=== PATIENT | female | born 1955 | race Caucasian/White ===

== ENCOUNTER 2021-07-28 08:10 | Outpatient (CLI) | payer MEDICARE, SELFPAY ==
[2021-07-28 08:54] LABS: Hemoglobin 12.4 g/dL (12.0-15.0); Mean Corpuscular HGB Conc 32.6 g/dl (32-36); Mean Corpuscular Hemoglobin 29.9 pg (26-34); Mean Corpuscular Volume 91.6 fl (80-100); Mean Platelet Volume 10.4 fl (7.4-10.4); Platelet Count Result 319 k/mm3 (150-375); Red Blood Count 4.15 M/mm3 (4.2-5.4); Red Cell Distribution Width 13.2 % (11.5-14.5); White Blood Count 7.4 K/mm3 (4.5-10.0)
[2021-07-28 09:10] LABS: Alanine Aminotransferase 17 U/L (4-35); Albumin Level 4.5 g/dL (3.5-5.1); Alkaline Phosphatase 93 U/L (38-126); Anion Gap 9 mmol/L (8-16); Aspartate Amino Transferase 21 U/L (14-36); Bilirubin,Total 0.4 mg/dL (0.2-1.3); Blood Urea Nitrogen 18 mg/dL (7-17); Calcium 9.5 mg/dL (8.4-10.2); Carbon Dioxide 30 mmol/L (22-30); Chloride 105 mmol/L (98-107); Cholesterol 224 mg/dL (0-200); Estimated Glomerular Filt Rate > 60; Glucose 96 mg/dL (65-110); HDL Direct 48 mg/dL; Potassium 4.4 mmol/L (3.4-5.0); Sodium 144 mmol/L (137-145); Triglycerides 142 mg/dL (<150)
[2021-07-28 09:21] LABS: LDL Cholesterol Direct 133 mg/dL
[2021-07-28 10:42] LABS: Folic Acid > 20.0 ng/mL (2.76->20)
== END 2021-07-28 08:11 | disposition home or self-care (01) ==
PROVIDERS: PCP Internal Medicine; Visit Provider Internal Medicine
DX: I10 Essential (primary) hypertension (principal)
CPT/HCPCS: 36415; 80053; 80061; 82607; 82746; 84443; 85027

== ENCOUNTER 2021-08-18 01:38 | Day surgery (SDC) | payer MEDICARE, SELFPAY ==
[2021-08-10 13:27] VITALS: BMI 41.9
--- NOTE | 2021-08-18 07:24 | PM.HPGS ---
History of Present Illness History of Present Illness Consent: Risks, benefits, and alternatives have been discussed and questions answered. Patient agrees to proceed with procedure. Chief complaint: GERD, epigastric pain Narrative: Reta Han is a 66 year old female with chronic acid reflux disease who is also having epigastric pain. a couple times a week she will have a severe, stabbing pain that is generally in the subxiphoid area. It may last for an hour or so. She also then gets burning in her upper abdomen that is more diffuse. She has been taking pantoprazole twice a day for several years. Occasionally she will feel food seemed to get hung up on the way down if it is solid food.She was found to have severe esophagitis 6 years ago at which time she had a Schatzki's ring as well Review of Systems Review of Systems: All systems reviewed & are unremarkable except as noted in HPI and below PMFSH Family History Family History Mother Patient's mother is Sibling Patient's brother is Social History Social History Smoking packs per day: 1 Smoking cigarettes per day: 20.0 Years smoked: 3 Smoking pack-years: 3.00 Smoking status: Former smoker Tobacco type: cigarettes Second hand tobacco smoke exposure: No Smoking end date: 10/29/73 Alcohol intake: current Alcohol use details: 1 per month Living arrangements: with family Spiritual care concerns: No Meds Home Medications and Allergies Home Medications Medication Instructions Recorded Confirmed Type pantoprazole 40 mg tablet,delayed 40 mg PO BID #180 tablet 06/20/21 08/10/21 Rx release Allergies Allergy/AdvReac Type Severity Reaction Status Date / Time No Known Allergies Allergy Mild NONE Verified 08/18/21 07:41 Exam Const: General: alert Orientation/consciousness: patient oriented x3 Resp: Auscultation: clear to auscultation bilaterally Cardio: Rhythm: regular rhythm GI: GI Palp: Yes Soft to palpation and No Tenderness to palpation present (GI) Neuro: General: patient oriented x3 Assessment and Plan Assessment and plan (1) Esophageal reflux disease: Code(s): K21.9 - Gastro-esophageal reflux disease without esophagitis Status: Acute Assessment and Plan: EGD with possible biopsy or dilatation or cautery.
[2021-08-18 07:42] VITALS: BP 130/69; PULSE 69; RESP 17; TEMP 36.8; O2SAT 94; BMI 41.8
[2021-08-18] MEDS: LACTATED RINGERS 1,000 ML 150 ML IV CONT (07:44)
--- NOTE | 2021-08-18 08:00 | WPDANESEPPF ---
Anes - Initial Pre Proc Eval Procedure: Operation Date: 08/18/21 08:30 Proposed Procedures p Esophagogastroduodenoscopy - Kristian Stevenson MD Date/Time: 08/18/21 08:00 Surgeon: Kristian Stevenson MD Pre Op Diagnosis: GERD, epigastric pain Patient Data Age: 66 Gender: F Height: 1.57 m Weight: 103.9 kg Last Vital Signs Temp 36.8 C 08/18/21 07:42 Pulse 69 08/18/21 07:42 Resp 17 08/18/21 07:42 BP 130/69 08/18/21 07:42 Pulse Ox 94 08/18/21 07:42 Allergies Allergy/AdvReac Type Severity Reaction Status Date / Time No Known Allergies Allergy Mild NONE Verified 08/18/21 07:41 Home Medications Medication Instructions Recorded Confirmed Type pantoprazole 40 mg tablet,delayed 40 mg PO BID #180 tablet 06/20/21 08/18/21 Rx release Patient hx anesthesia problems: none Family hx anesthesia problems: none Results Review: All pre-operative results and documents have been reviewed as part of the pre-operative evaluation. FOR[facility]LY [facility], [facility] Past Medical History Medical History (Updated 08/18/21 @ 08:00 by Kiran Ha MD) Morbid obesity Snoring Surgical History Surgical History (Updated 08/18/21 @ 08:01 by Kiran Ha MD) History of esophagogastroduodenoscopy (EGD) Family History Family History Mother Patient's mother is Sibling Patient's brother is Social History Social History Smoking packs per day: 1 Smoking cigarettes per day: 20.0 Years smoked: 3 Smoking pack-years: 3.00 Smoking status: Former smoker Tobacco type: cigarettes Second hand tobacco smoke exposure: No Smoking end date: 10/29/73 Alcohol intake: current Alcohol use details: 1 per month Living arrangements: with family Spiritual care concerns: No Anes - Eval Final PreProcedure Day of Procedure 08/18/21 08:00 Patient weight: morbidly obese Heart: regular rate and rhythm Lungs: clear to auscultation Airway: Mallampati scale class II Neurological: alert and oriented Last oral intake: >/= 8 hours ASA classification: III Emergent: no Anesthetic plan: proceed Anesthesia type and monitoring: general GIVS and standard monitoring Results Review: All pre-operative results and documents have been reviewed as part of the pre-operative evaluation. Informed Consent: The patient's anesthetic plan and its attendant risks and benefits were discussed with the patient/family/POA. Questions were solicited and answers provided to the satisfaction of the patient/family/POA.
[2021-08-18 08:31] VITALS: BP 134/67; PULSE 60; RESP 17; O2SAT 98
[2021-08-18 08:41] VITALS: BP 130/73; PULSE 56; RESP 18; O2SAT 99
[2021-08-18 08:51] VITALS: BP 123/74; PULSE 55; RESP 18; O2SAT 99
== END 2021-08-18 09:02 | disposition home or self-care (01) ==
PROVIDERS: PCP Internal Medicine; Visit Provider Internal Medicine Gastroenterology
PROC: 0DJ08ZZ Inspection of Upper Intestinal Tract, Via Natural or Artificial Opening Endoscopic (ICD-10-PCS; CPT 43235; principal; 2021-08-18 08:30)
DX: K21.9 Gastro-esophageal reflux disease without esophagitis (principal); K44.9 Diaphragmatic hernia without obstruction or gangrene; Z87.891 Personal history of nicotine dependence; E66.01 Morbid (severe) obesity due to excess calories; Z68.41 Body mass index [BMI] 40.0-44.9, adult
CPT/HCPCS: 43235; J2704; J7120

== ENCOUNTER 2021-09-16 07:32 | Outpatient (CLI) | payer MEDICARE, SELFPAY ==
--- NOTE | ~2021-09-16 | US_ITS ---
EXAMINATION: US abdomen complete EXAM DATE: 09/16/2021 08:07 INDICATION: R10.13 - Epigastric pain. TECHNIQUE: Multiple grayscale and Doppler images of the complete abdomen were obtained (by a technolo gist who performed the scan) and subsequently reviewed. There is no prior study for comparison. FINDINGS: The abdominal aorta is normal in caliber. Visualized portion IVC is patent. The pancreatic head a nd body are normal in appearance. The pancreatic tail is not visualized. The liver has normal echogenicity and contour. There are no focal liver lesions identified. There is no evidence of intrahepatic biliary duct dilation. Portal venous flow was seen in the hepatopedal , normal direction and has normal Doppler waveform. Common bile duct measures 4 mm, which is normal. The gallbladder wall is normal in thickness, with ex pected amount of distention. No sonographic evidence of pericholecystic fluid. There is no cholelit hiases. Technologist performing exam reports patient did not demonstrate sonographic Banks's sign. Please note that this sign is less reliable in patients who have received pain medication. Right kidney: There is normal contour and echogenicity. It measures 10.4 x 4.2 x 5.9 centimeters. There are no focal renal lesions identified. There is no hydronephrosis. Left kidney: There is normal contour and echogenicity. It measures 10.3 x 4.3 x 5.0 centimeters. T here are no focal renal lesions identified. There is no hydronephrosis. Spleen measures 10.3 cm, normal in size with scattered granulomata. IMPRESSION: 1. Unremarkable complete abdominal ultrasound exam. Reviewed, dictated and finalized at location D. [employer]
== END 2021-09-16 07:33 | disposition home or self-care (01) ==
PROVIDERS: PCP Internal Medicine; Visit Provider Internal Medicine Gastroenterology
DX: R10.13 Epigastric pain (principal)
CPT/HCPCS: 76700

== ENCOUNTER 2021-12-30 09:56 | Outpatient (CLI) | payer MEDICARE, SELFPAY ==
--- NOTE | ~2021-12-30 | CT_ITS ---
EXAMINATION: CT brain wo/w con DATE: 12/30/2021 10:26 INDICATION: Dizziness, giddiness TECHNIQUE: Computed tomography (CT) of the head was performed without intravenous contrast. The mA wa s adjusted according to patient size. Iterative reconstruction technique was employed. Exam dose: 10 59.33 mGy-cm total exam DLP. COMPARISON: None FINDINGS: Bilateral vertebral artery and carotid siphon internal carotid artery calcifications. No intracranial mass lesion or hemorrhage or cerebrovascular accident, midline shift or mass effect. Normal ventricular size. No subdural or epidural hematoma. No orbital mass lesion. No fracture or bone destruction of the cranial vault. Minimal focal lateral right sphenoid nuchal periosteal soft tissue thickening. Included paranasal sin uses and mastoid air cells are otherwise unremarkable. IMPRESSION: Cerebral atherosclerosis; no acute intracranial finding Reviewed, dictated and finalized at Location A. Reviewed, dictated and finalized at location A. [facility]
[2021-12-30 10:21] LABS: Estimated Glomerular Filt Rate > 60
== END 2021-12-30 09:57 | disposition home or self-care (01) ==
PROVIDERS: PCP Internal Medicine; Visit Provider Internal Medicine
DX: R42 Dizziness and giddiness (principal); I67.2 Cerebral atherosclerosis
CPT/HCPCS: 70470; Q9967

== ENCOUNTER 2022-02-16 08:44 | Outpatient (CLI) | payer MEDICARE, SELFPAY ==
--- NOTE | ~2022-02-16 | MR_ITS ---
EXAMINATION: MR brain/brain stem wo con DATE: 02/16/2022 09:49 INDICATION: Tremor, unspecified. TECHNIQUE: Magnetic resonance imaging (MRI) of the brain and brainstem was performed without intraven ous contrast. COMPARISON: Head CT 12/30/2021 FINDINGS: There are 2 foci of nonspecific increased T2-weighted signal intensity in the cerebral whit e matter, which is within normal limits for the patient's age. There is no intracranial hemorrhage, a cute infarction, or abnormal intracranial mass lesion. The ventricles are normal in size. The paranas al sinuses are clear. The orbits are normal. The mastoid air cells are normal. IMPRESSION: 1. Normal brain. Reviewed, dictated and finalized at location B. IMPRESSION: 1. Normal brain.
== END 2022-02-16 08:45 | disposition home or self-care (01) ==
PROVIDERS: PCP Internal Medicine; Visit Provider Psychiatry & Neurology Neurology
DX: R25.1 Tremor, unspecified (principal)
CPT/HCPCS: 70551

== ENCOUNTER 2022-04-24 07:58 | Outpatient (CLI) | payer MEDICARE, SELFPAY ==
[2022-04-24 08:36] LABS: Basophils Absolute Auto 0.1 K/mm3 (0.0-0.1); Basophils Percent Auto 1.1 % (0.2-1.2); Eosinophils Absolute Auto 0.2 K/mm3 (0-0.3); Eosinophils Percent Auto 3.2 % (0-4.4); Hematocrit 38.9 % (37.0-47.0); Hemoglobin 12.4 g/dL (12.0-15.0); Immature Granulocyte Absolute 0.01 K/mm3 (0.00-0.031); Immature Granulocyte Percent A 0.2 % (0-0.5); Lymphocytes Absolute Auto 2.02 K/mm3 (0.9-3.2); Lymphocytes Percent Auto 32.7 % (18.3-44.2); Mean Corpuscular HGB Conc 31.9 g/dl (32-36); Mean Corpuscular Hemoglobin 29.5 pg (26-34); Mean Corpuscular Volume 92.4 fl (80-100); Monocytes Absolute Auto 0.5 K/mm3 (0.1-0.6); Monocytes Percent Auto 8.7 % (2.6-8.5); Neutrophils Absolute Auto 3.3 K/mm3 (1.3-6.7); Neutrophils Percent Auto 54.1 % (45.5-73.1); Platelet Count Result 339 k/mm3 (150-375); Red Blood Count 4.21 M/mm3 (4.2-5.4); Red Cell Distribution Width 12.6 % (11.5-14.5); White Blood Count 6.2 K/mm3 (4.5-10.0)
[2022-04-24 08:49] LABS: Alanine Aminotransferase 16 U/L (6-35); Albumin Level 4.2 g/dL (3.5-5.1); Alkaline Phosphatase 82 U/L (38-126); Anion Gap 4 mmol/L (8-16); Aspartate Amino Transferase 19 U/L (14-36); Bilirubin,Total 0.2 mg/dL (0.2-1.3); Blood Urea Nitrogen 19 mg/dL (7-17); Calcium 9.1 mg/dL (8.4-10.2); Carbon Dioxide 31 mmol/L (22-30); Chloride 104 mmol/L (98-107); Cholesterol 260 mg/dL (0-200); Estimated Glomerular Filt Rate > 60; Glucose 93 mg/dL (65-110); HDL Direct 52 mg/dL; Potassium 4.3 mmol/L (3.4-5.0); Sodium 139 mmol/L (137-145); Triglycerides 117 mg/dL (<150)
[2022-04-24 09:00] LABS: LDL Cholesterol Direct 143 mg/dL
[2022-04-24 10:07] LABS: Folic Acid > 20.0 ng/mL (2.76->20)
== END 2022-04-24 07:59 | disposition home or self-care (01) ==
PROVIDERS: PCP Internal Medicine; Visit Provider Internal Medicine
DX: R53.83 Other fatigue (principal); R42 Dizziness and giddiness
CPT/HCPCS: 36415; 80053; 80061; 82533; 82607; 82746; 84443; 85025

== ENCOUNTER 2022-04-25 12:43 | Outpatient (CLI) | payer MEDICARE, SELFPAY ==
--- NOTE | ~2022-04-25 | US_ITS ---
EXAMINATION: US carotid duplex BI DATE: 04/25/2022 14:44 INDICATION: Dizziness and giddiness TECHNIQUE: Grayscale, color Doppler, and pulsed Doppler images of the cervical carotid arteries were obtained. The degree of vessel stenosis is placed in one of the following categories: normal, <50%, 5 0-69%, >=70% but less than near-occlusion, near-occlusion, or total occlusion. Note that percent sten osis relative to normal distal artery lumen diameter is indirectly measured from velocity measurement s as described by Baljeet, et al. Radiology 2003; 229:340-346. Notes: Normal: Peak systolic velocity <125 centimeters/sec and no plaque <50%. Peak systolic velocity <125 ( EDV <40; ICA/CCA PSV ratio <2.0; used these factors only a tandem lesions or low cardiac output or co ntralateral disease) 50-69 %: PSV 125-230 (EDV 40-100; ratio 2-4) >= 70% but less than near occlusion: PSV greater than 230 (EDV > 100; ratio> 4.0) Near Occlusion: PSV that is variable; markedly narrowed lumen Occlusion: Absent flow on color/spectral Doppler and no lumen on goode scale. COMPARISON: None. FINDINGS: RIGHT: The right common carotid artery (CCA) peak systolic velocity (PSV) is 86 cm/s. The right internal car otid artery (ICA) PSV is 92 cm/s. The right ICA end-diastolic velocity (EDV) is 36 cm/s. The right IC A/CCA PSV ratio is 1.1. The external carotid artery (ECA) PSV is 82 cm/s. There is antegrade flow in the right vertebral artery. LEFT: The left CCA PSV is 87 cm/s. The left ICA PSV is 92 cm/s. The left ICA EDV is 34 cm/s. The left ICA/C CA PSV ratio is 1.1. The ECA PSV is 89 cm/s. There is antegrade flow in the left vertebral artery. IMPRESSION: 1. Less than 50% stenosis in the right internal carotid artery by sonographic criteria. 2. Less than 50% stenosis in the left internal carotid artery by sonographic criteria. Reviewed, dictated and finalized at location A. IMPRESSION: 1. Less than 50% stenosis in the right internal carotid artery by sonographic c gustavo. 2. Less than 50% stenosis in the left internal carotid artery by sonographic deepika darling.
--- NOTE | 2022-04-25 12:55 | ECHO_ITS ---
Patient Info Name: Reta Han Age: 67 years : 1955 Gender: Female Ht: 62 in Wt: 220 lbs BSA: 2.14 m2 HR: 63 bpm BP: 132 / 53 mmHg Technical Quality: Good Exam Date: 04/25/2022 1:15 PM Exam Location: [facility] Patient Status: Outpatient Admit Date: 04/25/2022 Staff Ordering Physician: Elias Mandujano DO Composition Tile Layer: Missy Mejia RDCS Attending Provider: Elias Mandujano DO Referring Physician: Delbert MORAES; Exam Type: CA echo doppler color flow Study Info Indications R42 - Dizziness and giddiness Complete two-dimensional, color flow and Doppler transthoracic echocardiogram is performed. Summary 1. Complete two-dimensional, color flow and Doppler transthoracic echocardiogram is performed. 2. Left ventricular systolic function is normal, estimated at 55-60%. 3. The left ventricular diastolic function is grade I diastolic dysfunction. 4. Left ventricular chamber dimension is normal. 5. E/e' 12 is mildly elevated. 6. Left atrial chamber dimension is mildly enlarged. 7. There is mild aortic valve sclerosis. 8. There is trace mitral valve regurgitation. 9. There is trace tricuspid valve regurgitation. 10. No pulmonary hypertension, estimated pulmonary arterial systolic pressure is 25 mmHg. 11. There is trivial pericardial effusion. Left Ventricle E/e' 12 is mildly elevated. Left ventricular chamber dimension is normal. Left ventricular systolic function is normal, estimated at 55-60%. The left ventricular diastolic function is grade I diastolic dysfunction. Right Ventricle Right ventricular systolic function is normal and with normal TAPSE 1.9 cm. Right ventricular chamber dimension is normal. Left Atria Left atrial chamber dimension is mildly enlarged. Right Atria Right atrial chamber dimension is normal. Aortic Valve The aortic valve is trileaflet. There is mild aortic valve sclerosis. There is no aortic valve stenosis. There is no aortic valve regurgitation. Pulmonic Valve There is no pulmonic regurgitation. Mitral Valve There is no mitral valve stenosis. There is trace mitral valve regurgitation. Tricuspid Valve There is trace tricuspid valve regurgitation. No pulmonary hypertension, estimated pulmonary arterial systolic pressure is 25 mmHg. Pericardium/Pleural There is trivial pericardial effusion. Inferior Vena Cava Normal inferior vena cava with >50% collapse upon inspiration consistent with normal right atrial pressure, 5 mmHg. Aorta The aortic root size at the sinus of Valsalva is normal. Left Ventricular Outflow Tract Name Value Normal LVOT 2D LVOT Diameter 2.0 cm LVOT Doppler LVOT Peak Gradient 5 mmHg LVOT Mean Gradient 2 mmHg LVOT VTI 21 cm LVOT VTI/AV VTI Ratio 0.6 LVOT Stroke Volume 67 ml LVOT CO 4.3 l/min LVOT CI 2.0 l/min/m2 Mitral Valve
--- NOTE | 2022-04-28 12:34 | WPDHOLTEREM ---
Holter/Event Monitor Holter/Event Monitor Date of procedure: 04/25/22 Holter/Event Procedure: 48 Hr Holter Monitor Indications: Dizziness Conclusion: 1. 48 hour holter monitor on 04/25/22. 2. Underlying rhythm is sinus rhythm. HR range 44-98 bpm; average HR 68 bpm. 3. There are 42 premature supraventricular complexes. No supraventricular tachycardia. 4. There are 2 premature ventricular complexes. No ventricular tachycardia. 5. No sinoatrial or atrioventricular blocks. No significant pauses greater than 2 seconds. 6. Patient reports symptoms of lightheadedness which demonstrate sinus rhythm, HR range 54-86 bpm.
== END 2022-04-25 12:44 | disposition home or self-care (01) ==
LOC: ANHCARD 12:44
PROVIDERS: PCP Internal Medicine; Visit Provider Internal Medicine
DX: R42 Dizziness and giddiness (principal); I65.23 Occlusion and stenosis of bilateral carotid arteries; I51.7 Cardiomegaly
CPT/HCPCS: 93225; 93226; 93306; 93880

== ENCOUNTER 2022-05-18 08:27 | Outpatient (CLI) | payer MEDICARE, SELFPAY ==
--- NOTE | 2022-06-06 23:00 | WPDSLEEPSTUD ---
Sleep Study Date of Study: 05/18/22 Ordering Provider: Elias Mandujano DO Interpreting Physician: Chandrika Maguire DO Sleep Study Type: Polysomnogram Height: 1.57 m Weight: 100.244 kg Body Mass Index: 40.4 Neck Circumference (inches): 15 Celina: 4 Reason for Sleep Study Hitting,kicking and screaming during sleep Sleep History The patient is a 67-year-old female with GERD, Parkinson's disease, constipation and history of tobacco use that had a sleep study ordered by her primary care physician for evaluation abnormal behavior during sleep. The patient is currently retired. She denies awakening from sleep short of breath. She frequently awakens at night with coughing. She occasionally snores but it is rarely loud enough others complain. She frequently has trouble sleeping when she has a cold. She denies waking up gasping for air throughout the night. She denies having breathing problems at night observed by herself or others. She denies sweating excessively at night. She denies having heart palpitations or irregular heartbeats during the night. She denies falling asleep during the day and while driving. He denies sleep paralysis, cataplexy and hypnagogic / hypnopompic hallucinations. She denies having trouble at school or work due to sleepiness. She denies feeling afraid of going to sleep. She occasionally has nightmares. She rarely remembers her dreams. She denies having thoughts racing through her mind. She denies feeling sad or depressed. She denies having anxiety. She denies having muscular tension. She denies noticing parts of her body jerk. She denies kicking during the night. She denies having crawling and aching feelings in her legs but will occasionally have leg pain during the night. She denies grinding her teeth during sleep awakening with morning jaw pain. She is frequently bothered by pain during the day but never awakened by pain during the night. She frequently wakes up feeling stiff in the morning. She denies waking up with sore and achy muscles. She occasionally wakes up with pain in the neck, spine and other joints. She goes to bed at 10:30 p.m. on both weekdays and weekends. It takes her less than 30 minutes to fall asleep. She wakes up twice throughout the night to urinate. She is able to fall back asleep within 10 minutes. She wakes between 7-8 a.m. on both weekdays and weekends. She typically gets 8 hours of sleep per night. She will stay in bed for 10 minutes after waking up in the morning. He currently lives with her and adult son. She does not consume any caffeinated beverages within 2 hours of bedtime. She does not engage in physical exercise before bedtime. She will watch television before falling asleep. She denies taking naps in the afternoon or the evening. She quit smoking cigarettes 40 years ago. She denies caffeine, alcohol and recreational drug use PMFSH Past Medical History Medical History Morbid obesity Snoring Surgical History Surgical History History of esophagogastroduodenoscopy (EGD) Family History Family History Mother Patient's mother is Cancer Diabetes mellitus Hypertension Sibling Patient's brother is Cancer Daughter Asthma Grandparent Asthma Cerebrovascular accident Social History Social History Smoking packs per day: 1 Smoking cigarettes per day: 20.0 Years smoked: 3 Smoking pack-years: 3.00 Smoking status: Never smoker Tobacco type: cigarettes Second hand tobacco smoke exposure: No Smoking end date: 10/29/73 Alcohol intake: current Alcohol use details: 1 per month Substance use: never Spiritual care concerns: No Medications Home
[2022-06-07 04:57] VITALS: BMI 40.4
== END 2022-05-19 07:57 | disposition home or self-care (01) ==
LOC: ANHCSM 08:29
PROVIDERS: PCP Internal Medicine; Visit Provider Internal Medicine
DX: G47.8 Other sleep disorders (principal); G47.10 Hypersomnia, unspecified; R53.83 Other fatigue
CPT/HCPCS: 95810

== ENCOUNTER 2022-10-16 09:32 | Outpatient (CLI) | payer MEDICARE, SELFPAY ==
[2022-10-16 10:25] LABS: Alanine Aminotransferase 18 U/L (6-35); Albumin Level 4.6 g/dL (3.5-5.1); Alkaline Phosphatase 81 U/L (38-126); Anion Gap 6 mmol/L (8-16); Aspartate Amino Transferase 22 U/L (14-36); Bilirubin,Total 0.5 mg/dL (0.2-1.3); Blood Urea Nitrogen 21 mg/dL (7-17); Carbon Dioxide 31 mmol/L (22-30); Chloride 104 mmol/L (98-107); Cholesterol 167 mg/dL (0-200); Estimated Glomerular Filt Rate > 60; Glucose 93 mg/dL (65-110); HDL Direct 59 mg/dL; Potassium 4.2 mmol/L (3.4-5.0); Sodium 141 mmol/L (137-145); Triglycerides 113 mg/dL (<150)
[2022-10-16 10:36] LABS: LDL Cholesterol Direct 72 mg/dL
== END 2022-10-16 09:33 | disposition home or self-care (01) ==
PROVIDERS: PCP Internal Medicine; Visit Provider Internal Medicine
DX: E78.5 Hyperlipidemia, unspecified (principal); E66.01 Morbid (severe) obesity due to excess calories; Z68.41 Body mass index [BMI] 40.0-44.9, adult
CPT/HCPCS: 36415; 80053; 80061

== ENCOUNTER 2023-05-07 11:28 | Outpatient (CLI) | payer MEDICARE, SELFPAY ==
--- NOTE | ~2023-05-07 | XR_ITS ---
EXAMINATION:XR_[id number] DATE: 05/07/2023 11:57 INDICATION: Neck pain TECHNIQUE: AP, lateral, and odontoid views of the cervical spine are provided. COMPARISON: None FINDINGS: There is reversal of the normal cervical lordosis. Bone alignment is normal. The odontoid p rocess is intact. No fracture is identified. There is severe loss of intervertebral disc space height at C4-5, C5-6, and C6-7. The vertebral body heights are maintained. Small degenerative osteophytes p roject from the anterior endplates of multiple vertebral bodies. There is multilevel moderate to akosua re facet joint osteoarthritis. Prevertebral soft tissues are normal. IMPRESSION: 1. Moderate to severe cervical spondylosis without acute findings. Reviewed, dictated and finalized at location B.
--- NOTE | ~2023-05-07 | XR_ITS ---
Lumbosacral Spine: AP and lateral views Clinical History: Pain Findings: The normal lordotic curve is maintained. 3 mm retrolisthesis of L3 over L4 present. There i s mild degenerative disc narrowing throughout the lumbar spine. There is mild to moderate facet arthr opathy in the lumbar spine. The sacroiliac joints are normally outlined. Impression: Mild to moderate degenerative spondylosis. 3 mm retrolisthesis of L3 over L4. Reviewed, dictated and finalized at location . Impression: Mild to moderate degenerative spondylosis. 3 mm retrolisthesis of L3 over L4.
== END 2023-05-07 11:29 | disposition home or self-care (01) ==
PROVIDERS: PCP Internal Medicine; Visit Provider Internal Medicine
DX: M47.892 Other spondylosis, cervical region (principal); M47.896 Other spondylosis, lumbar region
CPT/HCPCS: 72040; 72100

== ENCOUNTER 2023-06-21 09:06 | Outpatient (CLI) | payer MEDICARE, SELFPAY ==
[2023-06-21 09:25] LABS: Basophils Absolute Auto 0.1 K/mm3 (0.0-0.1); Basophils Percent Auto 0.9 % (0.2-1.2); Eosinophils Absolute Auto 0.2 K/mm3 (0-0.3); Eosinophils Percent Auto 3.1 % (0-4.4); Hematocrit 38.6 % (37.0-47.0); Hemoglobin 12.8 g/dL (12.0-15.0); Immature Granulocyte Absolute 0.02 K/mm3 (0.00-0.031); Immature Granulocyte Percent A 0.3 % (0-0.5); Lymphocytes Absolute Auto 1.69 K/mm3 (0.9-3.2); Lymphocytes Percent Auto 24.9 % (18.3-44.2); Mean Corpuscular HGB Conc 33.2 g/dl (32-36); Mean Corpuscular Hemoglobin 29.9 pg (26-34); Mean Corpuscular Volume 90.2 fl (80-100); Mean Platelet Volume 9.8 fl (7.4-10.4); Monocytes Absolute Auto 0.6 K/mm3 (0.1-0.6); Monocytes Percent Auto 8.3 % (2.6-8.5); Neutrophils Absolute Auto 4.2 K/mm3 (1.3-6.7); Neutrophils Percent Auto 62.5 % (45.5-73.1); Platelet Count Result 285 k/mm3 (150-375); Red Blood Count 4.28 M/mm3 (4.2-5.4); Red Cell Distribution Width 12.4 % (11.5-14.5); White Blood Count 6.8 K/mm3 (4.5-10.0)
[2023-06-21 09:36] LABS: Alanine Aminotransferase 13 U/L (6-35); Albumin Level 4.1 g/dL (3.5-5.1); Alkaline Phosphatase 94 U/L (38-126); Anion Gap 3 mmol/L (8-16); Aspartate Amino Transferase 20 U/L (14-36); Bilirubin,Total 0.5 mg/dL (0.2-1.3); Blood Urea Nitrogen 24 mg/dL (7-17); Calcium 8.8 mg/dL (8.4-10.2); Carbon Dioxide 33 mmol/L (22-30); Chloride 104 mmol/L (98-107); Cholesterol 151 mg/dL (0-200); Estimated Glomerular Filt Rate > 60; Glucose 92 mg/dL (65-110); HDL Direct 57 mg/dL; Potassium 4.3 mmol/L (3.4-5.0); Sodium 140 mmol/L (137-145); Triglycerides 65 mg/dL (<150)
[2023-06-21 09:48] LABS: LDL Cholesterol Direct 76 mg/dL
[2023-06-21 10:42] LABS: Folic Acid 11.6 ng/mL (2.76->20)
== END 2023-06-21 09:07 | disposition home or self-care (01) ==
LOC: ANHLAB 09:08
PROVIDERS: PCP Internal Medicine; Visit Provider Internal Medicine
DX: G47.10 Hypersomnia, unspecified (principal); E78.5 Hyperlipidemia, unspecified; R53.83 Other fatigue; E66.01 Morbid (severe) obesity due to excess calories; Z68.41 Body mass index [BMI] 40.0-44.9, adult
CPT/HCPCS: 36415; 80053; 80061; 82607; 82746; 84443; 85025

== ENCOUNTER 2024-08-08 08:25 | Outpatient (CLI) | payer MEDICARE, SELFPAY ==
[2024-08-08 08:53] LABS: Basophils Absolute Auto 0.1 K/mm3 (0.0-0.1); Eosinophils Absolute Auto 0.3 K/mm3 (0-0.3); Eosinophils Percent Auto 4.9 % (0-4.4); Hematocrit 39.7 % (37.0-47.0); Immature Granulocyte Absolute 0.02 K/mm3 (0.00-0.031); Immature Granulocyte Percent A 0.3 % (0-0.5); Lymphocytes Absolute Auto 1.81 K/mm3 (0.9-3.2); Lymphocytes Percent Auto 29.5 % (18.3-44.2); Mean Corpuscular HGB Conc 32.7 g/dl (32-36); Mean Corpuscular Volume 91.5 fl (80-100); Mean Platelet Volume 9.7 fl (7.4-10.4); Monocytes Absolute Auto 0.5 K/mm3 (0.1-0.6); Monocytes Percent Auto 7.8 % (2.6-8.5); Neutrophils Absolute Auto 3.5 K/mm3 (1.3-6.7); Neutrophils Percent Auto 56.5 % (45.5-73.1); Platelet Count Result 290 k/mm3 (150-375); Red Blood Count 4.34 M/mm3 (4.2-5.4); Red Cell Distribution Width 13.1 % (11.5-14.5); White Blood Count 6.1 K/mm3 (4.5-10.0)
[2024-08-08 10:21] LABS: Alanine Aminotransferase 13 U/L (6-35); Albumin Level 4.1 g/dL (3.5-5.1); Alkaline Phosphatase 100 U/L (38-126); Anion Gap 7 mmol/L (4-12); Aspartate Amino Transferase 24 U/L (14-36); Bilirubin,Total 0.6 mg/dL (0.2-1.3); Blood Urea Nitrogen 16 mg/dL (7-17); Calcium 8.7 mg/dL (8.4-10.2); Carbon Dioxide 33 mmol/L (22-30); Chloride 103 mmol/L (98-107); Cholesterol 160 mg/dL (0-200); Estimated Glomerular Filt Rate > 60; Glucose 94 mg/dL (65-110); HDL Direct 57 mg/dL; Sodium 143 mmol/L (137-145); Triglycerides 56 mg/dL (<150)
[2024-08-08 10:32] LABS: LDL Cholesterol Direct 75 mg/dL
== END 2024-08-08 08:26 | disposition home or self-care (01) ==
PROVIDERS: PCP Internal Medicine; Visit Provider Internal Medicine
DX: G47.10 Hypersomnia, unspecified (principal); E78.5 Hyperlipidemia, unspecified; E66.9 Obesity, unspecified
CPT/HCPCS: 36415; 80053; 80061; 84443; 85025

== ENCOUNTER 2025-05-04 07:43 | Outpatient (CLI) | payer MEDICARE, SELFPAY ==
--- NOTE | ~2025-05-04 | NM_ITS ---
EXAMINATION: NM juanito stress w perfusion DATE: 05/04/2025 10:54 INDICATION: Chest pain TECHNIQUE: Rest images were obtained following intravenous administration of 11.2 mCi Tc99m tetrofosm in (Myoview). The patient was infused intravenously with Lexiscan (Regadenoson). Then, 34.9 mCi Tc99m tetrofosmin (Myoview) was administered intravenously, and stress images were obtained. Data was loretta nstructed into short axis and horizontal and vertical long axis SPECT images. Gated SPECT images were also obtained. COMPARISON: None. FINDINGS: There is no definite reversible or fixed perfusion abnormality to suggest ischemia or infar ction. There is normal left ventricular chamber size, wall motion and ejection fraction. Left ventr icular ejection fraction measures 68%. IMPRESSION: 1. Normal myocardial perfusion at rest and during stress. 2. Left ventricular ejection fraction measuring 68%. Reviewed, dictated and finalized at location A.
--- OUTSIDE RECORDS SUMMARY | 2025-05-04 07:48 | XMS_ITS | Clinical Summary ---
Author Organization [facility] Address [address] [place] [address] Care Team Providers Care Medical Assistant Internal Medicine Name Role Phone Elias Mandujano Mary MORGAN Primary Care Provider Source Comments [facility],non-owned Affiliates and Associated Physician Practices is amultiple site organization consisting of ambulatory clinics and hospital sitesin [place], [place], [place] and [place]. This disclosure is being madepursuant to the Care Everywhere program and may not contain all information available regarding this patient. Last updated 18.[facility] Allergies No known active allergies Medications * Be aware that medications may not be up to date on this document. Alwaysverify current medications with the patient. pantoprazole EC (PROTONIX) 40 MG tablet 12/30/2018 Active tolmetin (TOLECTIN) 600 MG tabletIndicatio ns:Osteoarthrit is,feet pain Take 1 tablet by mouth 3 times daily with meals Reasons: Joint Damage causing Pain and Loss of Function, feet pain 90 tablet 2 04/28/2019 Active Social History Tobacco Use Types Packs/Day Years Used Date Smoking Tobacco: Never Smokeless Tobacco: Never Comments Unknown Sex and Gender Information Value Date Recorded Sex Assigned at Not on file Legal Sex Female 3:46 PM CDT Gender Identity Not on file Sexual Orientation Not on file Last Filed Vital Signs Vital Sign Reading Time Taken Comments Blood Pressure 130/80 03/17/2019 9:09 AM CDT Pulse 62 03/17/2019 9:09 AM CDT Temperature 36.4 C (97.6 F) 03/17/2019 9:09 AM CDT Respiratory Rate - - Oxygen Saturation - - Inhaled Oxygen Concentration - - Weight 101.6 kg (224 lb) 03/17/2019 9:09 AM CDT Height 160 cm (5' 3) 03/17/2019 9:09 AM CDT Body Mass Index 39.68 03/17/2019 9:09 AM CDT Plan of Treatment Health Maintenance Due Date Last Done Comments BONE DENSITY TESTING 1955 COLOGUARD (AGES 45-75) - COL ON CA SCREENING 1955 COLON MONITORING 1955 COLONOSCOPY - COLON CA SCREENING 1955 CT COLONOGRAPHY - COLON CA SCREENING 1955 Colorectal Cancer Screening 1955 FIT - COLON CA SCREENING 1955 FLEX SIG - COLON CA SCREENING 1955 LIPID TESTING 1955 HEPATITIS C SCREENING 03/25/1974 DTAP/TDAP/TD VACCINES (1 - Tdap) 1975 PNEUMOCOCCAL VACCINE 50+ (1 of 1 - PCV) 2006 ZOSTER VACCINE (1 of 2) 2006 SCREENING FOR DIABETES 03/17/2019 MAMMOGRAM 08/28/2020 08/28/2018 COVID-19 VACCINE (1 - 2023-2 5 season) 2024 DEPRESSION SCREENING 10/29/2024 INFLUENZA VACCINE (#1) 2025 Respiratory Syncytial Virus (RSV) Vaccine Pt: or over 60 yrs (1 - 1-dose 75+ series) 2031 HEPATITIS B VACCINE Aged Out No longe r eligible based on patient's age to complete this topic HIB VACCINE Aged Out No longer eligi ble based on patient's age to complete this topic HPV VACCINE Aged Out No longer eligi ble based on patient's age to complete this topic MENINGOCOCCAL (Group B) VACC INE SHARED DECISION-MAKING Aged Out No longer eligibl e based on patient's age to complete this topic MENINGOCOCCAL GROUPS A/C/Y/W VACCINE Aged Out No longer eligible b ased on patient's age to complete this topic Insurance [employer] Care Teams Medical Assistant Internal Medicine Relationship Specialty Start Date End Date Elias Mandujano DO [address] [address] [place] [address] PCP - General 08/01/18
--- OUTSIDE RECORDS SUMMARY | 2025-05-04 07:48 | XMS_ITS | Clinical Summary ---
Author Organization [facility] Address [address] [place] [address] Care Team Providers Care Plugger Name Role Phone Zack Rosado DO Primary Care Provider [phone] Medications atorvastatin (LIPITOR) 20 MG tablet Take 1 tablet (20 mg total) by mouth daily. Active pantoprazole EC (PROTONIX) 40 MG tablet Take 1 tablet (40 mg total) by mouth 2 (two) times daily. 4 Active melatonin (MELATONIN MAXIMUM STRENGTH) 5 MG tablet Take 2 tablets (10 mg total) by mouth daily. Active traZODone (DESYREL) 50 MG tablet Take 1 tablet (50 mg total) by mouth nightly at bedtime. 4 Active carbidopa-levodopa (SINEMET) 25-100 MG tabletIndications:P arkinson's disease without dyskinesia or fluctuating manifestations (CMS/HCC HHS/HCC) Take 2 tablets by mouth 3 (three) times daily. 180 tablet 4 09/16/20 25 Active fludrocortisone (FLORINEF) 0.1 MG tabletIndications:P arkinson's disease without dyskinesia or fluctuating manifestations (CMS/HCC HHS/HCC) Take 2 tablets (0.2 mg total) by mouth daily. 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 or fluctuating manifestations (CMS/HCC HHS/HCC) TAKE 1 TABLET(0.5 MG) BY MOUTH EVERY NIGHT 30 tablet 5 5 Active Active Problems Problem Noted Date Diagnosed Date Parkinson's disease 09/16/2024 Family History Medical History Relation Comments Breast Cancer Mother Diabetes Mother Parkinson's Disease Mother Polycythemia Mother Relation Status Comments Mother Social History Tobacco Use Types Packs/Day Years Used Date Smoking Tobacco: Never Passive Smoke Exposure: Never Smokeless Tobacco: Never Tobacco Cessation:Counseling Given: Yes Alcohol Use Standard Drinks/Week Comments Never 0 (1 standard drink = 0.6 oz pur e alcohol) PHQ-2 Answer Date Recorded Patient Health Questionnaire-2 Score 0 11/13/2024 Comments Unknown Sex and Gender Information Value Date Recorded Sex Assigned at Not on file Legal Sex Female 9:09 AM CDT Gender Identity Not on file Sexual Orientation Not on file Last Filed Vital Signs Vital Sign Reading Time Taken Comments Blood Pressure 142/82 11/13/2024 1:44 PM LIGHTHOUSE KEEPER Pulse 67 11/13/2024 1:14 PM LIGHTHOUSE KEEPER Temperature 37.1 C (98.8 F) 09/16/2024 1:27 PM LIGHTHOUSE KEEPER Respiratory Rate - - Oxygen Saturation 96% 11/13/2024 1:14 PM LIGHTHOUSE KEEPER Inhaled Oxygen Concentration - - Weight 94.3 kg (208 lb) 11/13/2024 1:14 PM LIGHTHOUSE KEEPER Height - - Body Mass Index - - Plan of Treatment Upcoming Encounters Date Type Department Care Team (Late st Contact Info) Description 05/13/2025 1:00 PM CDT Office Visit [facility] Multispecialty Care - [address], [address] [place] [id number] Argelia Mclean MD [address] [place] [address] Health Maintenance Due Date Last Done Comments Colorectal Cancer Screening Colonoscopy (10 Years) 1955 Hepatitis C 1974 DTaP, Tdap and Td Vaccines (1 - Tdap) 1975 Zoster Vaccines (1 of 2) 2006 Annual Medicare Wellness Visit 2021 Dexa Scan (General) 2021 COVID-19 Vaccine ( season) 2024 11/14/2021, 01/21/2021, 12/24/2020 Mammogram Screening 06/16/2026 06/16/2024, 11/28/2022, 12/01/2020, Additional history exists RSV Immunization or 60+ Years (1 - 1-dose 75+ series) 2031 Pneumococcal Vaccine: 50+ Years Completed 09/04/2022 PHQ-2 (Physician [place]) Completed 11/13/2024 Meningococcal B Vaccine Aged Out No l onger eligible based on patient's age to complete this topic Meningococcal Vaccine Aged Out No amrik marlene eligible based on patient's age to complete this topic RSV Immunizations Under 20 Months Aged Out No longer eligible based on patient's age to complete this topic Insurance MEDICARE AET Care Teams Plugger Relationship Specialty Start Date End Date Zack Rosado DO [address] [address] PCP - General 09/15/24
--- OUTSIDE RECORDS SUMMARY | 2025-05-04 07:48 | XMS_ITS | Referral Summary ---
Author Organization [address] Address [facility] [place] [address] Care Team Providers Care Tractor Trailer Operator Name Role Phone Elias Mandujano MD Primary Care Provider [phone] Allergies No known active allergies Medications pantoprazole DR (PROTONIX) 40 mg EC tablet Take 1 tablet (40 mg total) by mouth 2 (two) times a day 02/09/2022 Active traZODone (DESYREL) 50 mg tablet Take 1 tablet (50 mg total) by mouth nightly 02/10/2022 Active atorvastatin (LIPITOR) 20 mg tablet Take 1 tablet (20 mg total) by mouth daily Active melatonin 5 mg tablet Take 2 tablets (10 mg total) by mouth daily Active carbidopa-levod opa (SINEMET) 25-100 mg per tabletIndicatio ns:Parkinsonism Take 2 tablets by mouth 3 (three) times a day 180 tablet 11 01/09/2024 Active fludrocortisone 0.1 mg tablet Take 2 tablets (0.2 mg total) by mouth daily 60 tablet 11 01/09/2024 Active Active Problems No known active problems Social History Tobacco Use Types Packs/Day Years Used Date Smoking Tobacco: Former Smokeless Tobacco: Never Personal Safety Answer Date Recorded Getting School Help Needed Not on file 11/03 Comments No Sex and Gender Information Value Date Recorded Sex Assigned at Not on file 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 Gender Identity Not on file Sexual Orientation Not on file Last Filed Vital Signs Vital Sign Reading Time Taken Comments Blood Pressure 107/76 01/09/2024 10:17 AM CDT Pulse 75 01/09/2024 10:17 AM CDT Temperature 36.2 C (97.2 F) 01/09/2024 10:16 AM CDT Respiratory Rate - - Oxygen Saturation 98% 01/09/2024 10:16 AM CDT Inhaled Oxygen Concentration - - Weight 90.9 kg (200 lb 8 oz) 01/09/2024 10:16 AM CDT Height 157.5 cm (5' 2) 01/09/2024 10:16 AM CDT Body Mass Index 36.67 01/09/2024 10:16 AM CDT Plan of Treatment Not on file Procedures Procedure Name Priority Date/Time Associated Diagnosis Comments SCREENING MAMMOGRAM BILATERAL W KENRICK Schedule Routine, Read Routine (OP Routine) 06/16/2024 12:54 PM CDT Screening mammogram, encounter for from Last 3 Months or Most Recently Relevant to Health Maintenance Results * Screening Mammogram Bilateral W Kenrick (06/16/2024 12:54 PM CDT) Anatomical Region Laterality Modality Breast Bilateral Mammography Impressions 06/16/2024 1:11 PM CDT BI-RADS ATLAS category (overall): 1 - Negative There is no mammographic evidence of malignancy. A 1 year screening mammogram is recommended. The patient has been or will be contacted. We recommend annual screening mammography for women at average risk of breast cancer beginning at age 40, based on guidelines of the [employer] (ACR Practice Parameter for the Performance of Screening and Diagnostic Mammography) and [employer]nec[employer]. For women with and elevated risk of breast cancer, please refer to the ACR Practice Parameter for specific screening recommendations. The patient will be entered into a reminder system with a target due date of 1 year for her next screening exam. Narrative 06/16/2024 1:11 PM CDT Screening Mammogram Bilateral W Kenrick: 06/16/24 The study was acquired using full field digital technology and interpreted from soft copy. 2D digital mammographic views, as well as 3D digital tomosynthesis were performed in the CC and MLO projections. CLINICAL: Screening mammogram, encounter for. No relevant medical history has been documented for this patient. History of breast cancer in Mother. COMPARISONS: 11/28/2022 Screening Mammogram Bilateral W Kenrick 12/01/2020 Screening Mammogram Bilateral W Kenrick 09/10/2019 Screening Mammogram Bilateral W Kenrick 08/28/2018 Screening Mammogram Bilateral W Kenrick 06/26/2017 Screening Mammogram 2D Bilateral BREAST TISSUE: There are scattered areas of fibroglandular density. FINDINGS: There is no new suspicious finding in either breast on mammogram. Elias Mandujano MD IM MAMMO PROCEDURES Final Result from Last 3 Months or Most Recently Relevant to Health Maintenance Insurance MEDICARE AET SENIOR SUPPLEMENT [facility]LY [facility] ACCESS BLUE ACCESS OOS MEDICARE AETNA SENIOR SUPPLEMENT Care Teams Tractor Trailer Operator Relationship Specialty Start Date End Date Elias Mandujano MD [address] [address] PCP - General 06/26/17
--- OUTSIDE RECORDS SUMMARY | 2025-05-04 07:48 | XMS_ITS | Clinical Summary ---
Author Organization [address] Address [facility] [place] [address] Care Team Providers Care Industrial Sewer Name Role Phone Elias Mandujano MD Primary Care Provider [phone] Allergies No known active allergies Medications pantoprazole [...] Active Active Problems No known active problems Medical History Medical History Date Comments GERD (gastroesophageal reflux disease) Family History Medical History Relation Name Comments Breast cancer Mother Parkinsonism Mother Relation Name Status Comments Mother Social History Tobacco Use Types Packs/Day Years Used Date Smoking Tobacco: Former Smokeless Tobacco: Never Personal Safety Answer Date Recorded Getting School Help Needed Not on file 11/03 Comments No Sex and Gender Information Value Date Recorded Sex Assigned at Not on file 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 Gender Identity Not on file Sexual Orientation Not on file Obstetrics History Para Term AB IAB SAB Ectopic Multiple Livin g Live Births 3 3 3 Date Outcome GA Total Labor Labor/2nd/3rd Weight Sex Type Anes PTL Ritu A1 A5 Name Clin Term Term Term Last Filed Vital Signs Vital Sign Reading [...] 01/09/2024 10:16 AM CDT Plan of Treatment Health Maintenance Due Date Last Done Comments Colon Cancer Screening-Colonoscopy 1955 Depression Screening 1955 Fall Risk Assessment 1955 Hepatitis C Screening 1955 Osteoporosis Screening-Bone Density Scan 1956 DTaP/Tdap/Td Vaccine (1 - Tdap) 1967 Hepatitis B Screening 1974 Pneumococcal vaccine 65+ (1 of 1 - PCV) 2006 Zoster Vaccine (1 of 2) 2006 Well Visit 65+ 2021 Breast Cancer Screening-Mammogram 06/16/2025 06/16/2024, 11/28/2022, 12/01/2020, Additional history exists Influenza Vaccine (Season Ended) 2025 07/31/2019, 08/14/2018, 07/22/2017, Additional history exists Procedures Procedure Name Priority Date/Time Associated Diagnosis [...] age 40, based on guidelines of the [employer] [employer] (ACR Practice Parameter for the Performance of Screening and Diagnostic Mammography) and [employer]. For women [...] either breast on mammogram. Elias Mandujano MD IMG MAMMO PROCEDURES Final Result from Last 3 Months or Most Recently Relevant to Health Maintenance Insurance MEDICARE Member Subscriber Plan / Payer (Ef fective 2021-Present) Name:Reta Han Member ID:[id number] Relation to Subscriber:Self Name:Reta Han Subscriber ID:[id number] Payer ID:[id number] Group ID:Not on file Type:MEDICARE TRADITIONAL Address: [address] [address] [place] [address] AETNA SENIOR SUPPLEMENT [facility] ACCESS Member Subscriber Plan / Payer (Ef fective 2017-Present) Name:Reta Han Relation to Subscriber:Spouse Name:EDMAR HAN Subscriber ID:Not on file Date of :1954 (Home) Address: [address] [place] [address] Payer ID:[id number] (NAIC) Type:[employer] Address: [address] ACCESS OOS MEDICARE AETNA SENIOR SUPPLEMENT Care Teams Industrial Sewer Relationship Specialty Start Date End Date Elias Mandujano MD [address] [facility] [address] [place] [address] PCP - General 06/26/17
--- NOTE | 2025-05-04 08:30 | EST_ITS ---
Patient Info Name: Reta Han Age: 70 years : 1955 Gender: Female Ht: 62 in Wt: 212 lbs BSA: 2.10 m2 HR: 60 bpm BP: 142 / 91 mmHg Exam Date: 05/04/2025 8:30 AM Patient Status: O Admit Date: 05/04/2025 Exam Type: CA stress juanito w NM A regadenoson stress test was performed. Staff Referring Physician: Diamond PITTS Attending Provider: Diamond PITTS Exercise Technologist: Heather Segal Exercise Physician: Danie Hernandez DO Summary 1. 1. Negative lexiscan stress test for ischemic ST changes by ECG criteria. 2. 2. Baseline hypertension. 3. 3. Nuclear scan to follow and will be reported separately. Please correlate with it. 4. 4. Patient informed of the above results. Protocol: Lexiscan Stress ECG Details Stage: REST Duration (min): 3 min : 43 sec HR (bpm): 62 SBP (mmHg): 148 DBP (mmHg): 92 Stage: REST Duration (min): 4 min : 1 sec HR (bpm): 61 SBP (mmHg): 148 DBP (mmHg): 92 Stage: REST Duration (min): 13 min : 55 sec HR (bpm): 63 SBP (mmHg): 148 DBP (mmHg): 92 Stage: STAGE 1 Duration (min): 0 min : 59 sec HR (bpm): 85 SBP (mmHg): 156 DBP (mmHg): 63 Stage: RECOVERY Duration (min): 1 min : 0 sec HR (bpm): 88 SBP (mmHg): 156 DBP (mmHg): 63 Stage: RECOVERY Duration (min): 2 min : 0 sec HR (bpm): 87 SBP (mmHg): 156 DBP (mmHg): 63 Stage: RECOVERY Duration (min): 3 min : 0 sec HR (bpm): 83 SBP (mmHg): 156 DBP (mmHg): 63 Stage: RECOVERY Duration (min): 3 min : 29 sec HR (bpm): 84 SBP (mmHg): 137 DBP (mmHg): 70 Rest HR: 63 bpm Peak HR: 88 bpm Rest Sys BP: 148 mmHg Peak Sys BP: 156 mmHg Max Pred HR: 151 bpm % Max Pred HR: 58 % Target HR: 128 bpm Max RPP: 13,728 bpm*mmHg Termination Reason: Completed protocol Cardiac Symptoms: Shortness of breath Total Time: 1 min : 0 sec Rest Mathis BP: 92 mmHg Peak Mathis BP: 63 mmHg Total Dose: 0.4 mg Resting ECG Sinus rhythm, borderline ST abnormality in anterolat/inf leads. Stress ECG No ST changes. Arrhythmias None. Report Signatures
== END 2025-05-04 07:44 | disposition home or self-care (01) ==
PROVIDERS: PCP Clinical Nurse Specialist; Visit Provider Clinical Nurse Specialist
DX: R07.89 Other chest pain (principal); R42 Dizziness and giddiness
CPT/HCPCS: 78452; 93017; A9502; J2785

== ENCOUNTER 2025-06-04 13:42 | Outpatient (CLI) | payer MEDICARE, SELFPAY ==
--- OUTSIDE RECORDS SUMMARY | 2025-06-04 13:47 | XMS_ITS | Clinical Summary ---
Author Organization [facility] [employer] Address [address] [place] [address] Care Team Providers Care Kitchen Food Server Name Role Phone Elias Mandujano Mary MORGAN Primary Care Provider Source Comments [facility] [employer],non-owned Affiliates and Associated Physician Practices is amultiple site organization consisting of ambulatory clinics and hospital sitesin [place], [place], [place] and [place]. This disclosure is being madepursuant to the Care Everywhere program and may not contain all information available regarding this patient. Last updated 18.[employer] Allergies No known active allergies Medications * [...] complete this topic Insurance [employer]O Care Teams Kitchen Food Server Relationship Specialty Start Date End Date Elias Mandujano DO [address] [facility] [address] [place] [address] PCP - General 08/01/18
--- OUTSIDE RECORDS SUMMARY | 2025-06-04 13:47 | XMS_ITS | Clinical Summary ---
Author Organization [facility] Address [address] [place] [address] Care Team Providers Care Bread Oven Operator Name Role Phone Bautista Cruz DO Primary Care Provider [phone] Medications atorvastatin (LIPITOR) 20 MG tablet Take [...] by mouth nightly at bedtime. 4 Active clonazePAM (KLONOPIN) 0.5 MG tabletIndications: Parkinson's disease without dyskinesia or fluctuating manifestations (CMS/HCC HHS/HCC) TAKE 1 TABLET(0.5 MG) BY MOUTH EVERY NIGHT 30 tablet 5 Active carbidopa-levodopa (SINEMET) 25-100 MG tabletIndications: Parkinson's disease without dyskinesia or fluctuating manifestations (CMS/HCC HHS/HCC) Take 2 tablets by mouth 3 (three) times daily. 180 tablet 5 05/13/20 26 Active fludrocortisone (FLORINEF) 0.1 MG tabletIndications: Parkinson's disease without dyskinesia or fluctuating manifestations (CMS/HCC HHS/HCC) Take 2 tablets (0.2 mg total) by mouth daily. 60 tablet 5 05/13/20 26 Active carbidopa-levodopa (SINEMET) 25-100 MG tabletIndications: Parkinson's disease without dyskinesia or fluctuating manifestations (CMS/HCC HHS/HCC) Take 2 tablets by mouth 3 (three) times daily. 180 tablet 11 4 05/13/20 25 Discontin ued(Reord er) fludrocortisone (FLORINEF) 0.1 MG tabletIndications: Parkinson's disease without dyskinesia or fluctuating manifestations (CMS/HCC HHS/HCC) Take 2 tablets (0.2 mg total) by mouth daily. 60 tablet 11 4 05/13/20 25 Discontin ued(Reord er) Active Problems Problem Noted Date Diagnosed Date Parkinson's disease 09/16/2024 Encounters Date Type Department Care Team Description 05/13/2025 1:00 PM CDT Office Visit [facility] Multispecialty Care - [address], [address] [place] [address] Argelia Mclean MD Follow Up 05/13/2025 Travel from Last 3 Months Family History Medical History Relation Comments Breast [...] Date Recorded Patient Health Questionnaire-2 Score 0 05/13/2025 Comments Unknown Sex and Gender Information Value Date Recorded Sex Assigned at Not on file Legal Sex Female 9:09 AM CDT Gender Identity Not on file Sexual Orientation Not on file Last Filed Vital Signs Vital Sign Reading Time Taken Comments Blood Pressure 115/66 05/13/2025 12:57 PM CDT Pulse 70 05/13/2025 12:57 PM CDT Temperature 37.1 C (98.8 F) 09/16/2024 1:27 PM HAND I THERMAL CUTTER Respiratory Rate - - Oxygen Saturation 98% 05/13/2025 12:57 PM CDT Inhaled Oxygen Concentration - - Weight 97.5 kg (215 lb) 05/13/2025 12:57 PM CDT Height - - Body Mass Index - - Plan of Treatment Upcoming Encounters Date Type Department Care Team (Late st Contact Info) Description 05/13/2026 10:40 AM CDT Office Visit [facility] Multispecialty Care - [facility] [address] [facility], [address] [place] [address] Argelia Mclean MD [address] [place] [address] Health Maintenance Due Date Last Done Comments [...] Vaccine: 50+ Years Completed 09/04/2022 PHQ-2 (Physician [place]) Completed 05/13/2025 Meningococcal B Vaccine Aged Out No l onger eligible based on patient's age to complete this topic Meningococcal Vaccine Aged Out No amrik marlene eligible based on patient's age to complete this topic RSV Immunizations Under 20 Months Aged Out No longer eligible based on patient's age to complete this topic Insurance MEDICARE AETNA Care Teams Bread Oven Operator Relationship Specialty Start Date End Date Bautista Cruz DO [address] [place] [address] PCP - General 05/10/25
--- OUTSIDE RECORDS SUMMARY | 2025-06-04 13:47 | XMS_ITS | Clinical Summary ---
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 For women [...] Recently Relevant to Health Maintenance Insurance MEDICARE AETNA SENIOR SUPPLEMENT [facility] ACCESS Member Subscriber Plan / Payer (Ef fective 2017-Present) Name:Reta Han Relation to Subscriber:Spouse Name:EDMAR HAN Subscriber ID:Not on file Date of :1954 (Home) Address: [address] [place] [address] Payer ID:[id number] (NAIC) Type:[employer] Address: [address] ACCESS OOS MEDICARE AETNA SENIOR SUPPLEMENT [place] [id number] Care Teams City Jailer Relationship Specialty Start Date End Date Elias Mandujano MD [address] [facility] [address] [place] [address] PCP - General 06/26/17
--- NOTE | 2025-06-04 14:10 | ECHO_ITS ---
Patient Info Name: Reta Han Age: 70 years : 1955 Gender: Female Ht: 62 in Wt: 212 lbs BSA: 2.10 m2 HR: 66 bpm BP: 87 / 68 mmHg Technical Quality: Good Exam Date: 06/04/2025 2:19 PM Patient Status: O Admit Date: 06/04/2025 Exam Type: CA echo doppler color flow Complete two-dimensional, color flow and Doppler transthoracic echocardiogram is performed. Senior Counsel Commercial: Shannon Suresh Attending Provider: Diamond Harden [facility] Summary 1. Complete two-dimensional, color flow and Doppler transthoracic echocardiogram is performed. 2. Left ventricular chamber dimension is normal. 3. Left ventricular systolic function is normal, estimated at 60-65. 4. The left ventricular diastolic function is grade I diastolic dysfunction. 5. E/e' 9 is minimally elevated. 6. Left atrial chamber dimension is moderately enlarged. 7. There is mild aortic valve sclerosis. 8. There is mild aortic valve regurgitation. 9. There is mild mitral valve regurgitation. 10. There is mild tricuspid valve regurgitation. 11. No pulmonary hypertension, estimated pulmonary arterial systolic pressure is 37 mmHg. Left Ventricle E/e' 9 is minimally elevated. Left ventricular chamber dimension is normal. Left ventricular systolic function is normal, estimated at 60-65. The left ventricular diastolic function is grade I diastolic dysfunction. Right Ventricle Right ventricular chamber dimension is normal. Right ventricular systolic function is normal and with normal TAPSE 2.1 cm. Left Atria Left atrial chamber dimension is moderately enlarged. Right Atria Right atrial chamber dimension is normal. Aortic Valve The aortic valve is trileaflet. There is mild aortic valve sclerosis. There is no aortic valve stenosis. There is mild aortic valve regurgitation. Pulmonic Valve There is no pulmonic regurgitation. Mitral Valve There is no mitral valve stenosis. There is mild mitral valve regurgitation. Tricuspid Valve There is mild tricuspid valve regurgitation. No pulmonary hypertension, estimated pulmonary arterial systolic pressure is 37 mmHg. Pericardium/Pleural There is no pericardial effusion. Inferior Vena Cava Normal inferior vena cava with >50% collapse upon inspiration consistent with normal right atrial pressure, 5 mmHg. Aorta The aortic root size at the sinus of Valsalva is normal. Left Ventricular Outflow Tract Name Value Normal LVOT 2D LVOT Diameter 1.9 cm LVOT Doppler LVOT Peak Velocity 124 cm/s LVOT Peak Gradient 6 mmHg LVOT Mean Gradient 3 mmHg LVOT VTI 30 cm LVOT Stroke Volume 84 ml LVOT CO 5.5 l/min LVOT CI 2.6 l/min/m2 Pulmonic Valve Name Value Normal RVOT Doppler RVOT Peak Velocity 76 cm/s RVOT Peak Gradient 2 mmHg PV Doppler PV Peak Velocity 127 cm/s PV Peak Gradient 6 mmHg Mitral Valve Name Value Normal MV Diastolic Function MV E Peak Velocity 75 cm/s MV A Peak Velocity 98 cm/s MV E/A 0.8 MV Decel Time (PW) 279 ms MV Annular TDI MV E/e' (Septal) 11.7 MV E/e' (Lateral) 8.6 MV E/e' (Average) 10.1 Tricuspid Valve Name Value Normal TV Regurgitation Doppler TR Peak Velocity 281 cm/s TR Peak Gradient 32 mmHg Estimated PAP/RSVP RA Pressure 5 mmHg <=5 PA Systolic Pressure 37 mmHg <36 RV Systolic Pressure 37 mmHg <36 Aortic Valve Name Value Normal AV Doppler AV Peak Velocity 210 cm/s AV Peak Gradient 18 mmHg AV Area (Cont Eq Ernesto) 1.7 cm2 AV DI (Ernesto) 0.59 AV Regurgitation 2D LVOT Area 2.8 cm2 Ventricles Name Value Normal LV Dimensions 2D/MM IVS Diastolic Thickness (2D) 1.1 cm 0.6-1.0 LVID Diastole (2D) 4.8 cm 3.8-5.2 LVIW Diastolic Thickness (2D) 1.0 cm 0.6-0.9 LVID Systole (2D) 3.4 cm 2.2-3.5 LVOT Diameter 1.9 cm LV Mass (2D Cubed) 175.62 g 67.00-162.00 LV Mass Index (2D Cubed) 84 g/m2 43-95 Relative Wall Thickness (2D) 0.43 <=0.42 LV Fractional Shortening/Ejection Fraction 2D/MM LV Fractional Shortening (2D) 28 % 27-45 LV EF (2D Teichholz) 54 % LV Diastolic Volume (4C MOD) 120 ml LV EF (4C MOD) 55 % LV Diastolic Volume (2C MOD) 95 ml LV EF (2C MOD) 63 % LV Diastolic Volume (BP MOD) 110 ml 46-106 LV Diastolic Volume Index (BP MOD) 53 ml/m2 29-61 LV Systolic Volume (BP MOD) 43 ml 14-42 LV Systolic Volume Index (BP MOD) 21 ml/m2 8-24 LV EF (BP MOD) 61 % 54-74 LV Diastolic Length (4C) 8.4 cm LV Systolic Length (4C) 6.5 cm LV Stroke Volume (4C MOD) 65 ml Atria Name Value Normal LA Dimensions LA Volume (4C A-L) 87 ml LA Volume (BP A-L) 94 ml RA Dimensions RA Systolic [place] Length (4C) 5.4 cm 2.2-2.8 RA Area (4C) 15.9 cm2 <=18.0 Report Signatures
== END 2025-06-04 13:43 | disposition home or self-care (01) ==
LOC: ANHCARD 13:45
PROVIDERS: PCP Clinical Nurse Specialist; Visit Provider Clinical Nurse Specialist
DX: I95.1 Orthostatic hypotension (principal); R07.89 Other chest pain; I34.0 Nonrheumatic mitral (valve) insufficiency; I35.1 Nonrheumatic aortic (valve) insufficiency; I36.1 Nonrheumatic tricuspid (valve) insufficiency
CPT/HCPCS: 93306

== ENCOUNTER 2025-08-27 09:19 | Outpatient (CLI) | payer MEDICARE, SELFPAY ==
--- OUTSIDE RECORDS SUMMARY | 2025-08-27 09:58 | XMS_ITS | Clinical Summary ---
Author Organization [facility] Address [address] [place] [address] Care Team Providers Care Registered Nurse Supervisor Name Role Phone Elias Mandujano Mary MORGAN Primary Care Provider Source Comments [facility],non-owned Affiliates and Associated Physician Practices is amultiple site organization consisting of ambulatory clinics and hospital sitesin [place], [place], [place] and [place]. This disclosure is being madepursuant to the Care Everywhere program and may not contain all information available regarding this patient. Last updated 18.[facility] Allergies No known active allergies Medications * [...] SCREENING FOR DIABETES 03/17/2019 MAMMOGRAM 08/28/2020 08/28/2018 DEPRESSION SCREENING 10/29/2024 COVID-19 VACCINE (1 - 2023-2 5 season) 2025 INFLUENZA VACCINE (#1) 2025 Respiratory Syncytial Virus [...] complete this topic Insurance [employer] Care Teams Registered Nurse Supervisor Relationship Specialty Start Date End Date Elias Mandujano DO [address] [facility] [address] [place] [address] PCP - General 08/01/18
--- OUTSIDE RECORDS SUMMARY | 2025-08-27 09:58 | XMS_ITS | Clinical Summary ---
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 For women [...] Health Maintenance Insurance MEDICARE [employer] SENIOR SUPPLEMENT [facility] ACC[facility] Member Subscriber Plan / Payer (Ef fective 2017-Present) Name:Reta Han Relation to Subscriber:Spouse Name:EDMAR HAN Subscriber ID:Not on file Date of :1954 (Home) Address: [address] [place] [address] Payer ID:[id number] (NAIC) Type:[employer] Address: [address] ACCESS OOS MEDICARE A[employer] SENIOR SUPPLEMENT [place] [id number] Care Teams Twisting Machine Operator Relationship Specialty Start Date End Date Elias Mandujano MD [address] [facility] [address] [place] [address] PCP - General 06/26/17
--- OUTSIDE RECORDS SUMMARY | 2025-08-27 09:58 | XMS_ITS | Clinical Summary ---
Author Organization [facility] Address [address] [place] [address] Care Team Providers Care Science Education Professor Name Role Phone NancyBautista Cornelio MORGAN Primary Care Provider [phone] Medications atorvastatin (LIPITOR) 20 MG tablet Take [...] bedtime. 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 Respiratory Rate - - Oxygen Saturation 98% 05/13/2025 12:57 PM CDT Inhaled Oxygen Concentration - - Weight 97.5 kg (215 lb) 05/13/2025 12:57 PM CDT Height - - Body Mass Index - - Plan of Treatment Upcoming Encounters Date Type Department Care Team (Late st Contact Info) Description 05/13/2026 10:40 AM CDT Office Visit [facility] - [address], [address] [place] [address] Argelia Mclean MD [address] [place] [address] Health Maintenance Due Date Last Done Comments Colorectal Cancer Screening Colonoscopy (10 Years) 1955 Hepatitis C 1974 DTaP, Tdap and Td Vaccines (1 - Tdap) 1975 Zoster Vaccines (1 of 2) 2006 Annual Medicare Wellness Visit 2021 Dexa Scan (General) 2021 COVID-19 Vaccine ( season) 2025 11/14/2021, 01/21/2021, 12/24/2020 Influenza Adult (#1) 2025 09/03/2024, 09/02/2020, 07/31/2019, Additional history exists Mammogram Screening 06/16/2026 06/16/2024, 11/28/2022, 12/01/2020, Additional history exists RSV Immunization or 60+ Years (1 - 1-dose 75+ series) 2031 Pneumococcal Vaccine: 50+ Years Completed 09/04/2022 PHQ-2 (Physician Addison) Completed 05/13/2025 Hepatitis A Vaccines Aged Out No long er eligible based on patient's age to complete this topic Meningococcal B Vaccine Aged Out No l onger eligible based on patient's age to complete this topic Meningococcal Vaccine Aged Out No amrik marlene eligible based on patient's age to complete this topic RSV Immunizations Under 20 Months Aged Out No longer eligible based on patient's age to complete this topic Insurance MEDICARE AETNA Care Teams Science Education Professor Relationship Specialty Start Date End Date Bautista Cruz DO [address] [place] [address] PCP - General 05/10/25
[2025-08-27 10:06] LABS: Hematocrit 41.2 % (37.0-47.0); Hemoglobin 13.5 g/dL (12.0-15.0); Immature Granulocyte Percent A 0.2 % (0-0.5); Lymphocytes Absolute Auto 1.54 K/mm3 (0.9-3.2); Mean Corpuscular HGB Conc 32.8 g/dl (32-36); Mean Corpuscular Hemoglobin 29.7 pg (26-34); Mean Corpuscular Volume 90.7 fl (80-100); Nucleated Red Blood Cells Absolute Auto 0.000 K/mm3 (0.0-0.012); Nucleated Red Blood Cells Perc 0.0 % (0.0-0.2); Platelet Count Result 304 k/mm3 (150-375); Red Blood Count 4.54 M/mm3 (4.2-5.4); White Blood Count 5.9 K/mm3 (4.5-10.0)
[2025-08-27 10:29] LABS: Alanine Aminotransferase 15 U/L (6-35); Albumin Level 4.3 g/dL (3.5-5.1); Alkaline Phosphatase 98 U/L (38-126); Anion Gap 7 mmol/L (4-12); Aspartate Amino Transferase 23 U/L (14-36); Bilirubin,Total 0.6 mg/dL (0.2-1.3); Blood Urea Nitrogen 20 mg/dL (7-17); Calcium 9.4 mg/dL (8.4-10.2); Carbon Dioxide 30 mmol/L (22-30); Chloride 102 mmol/L (98-107); Cholesterol 155 mg/dL (0-200); Estimated Glomerular Filt Rate > 60; Glucose 90 mg/dL (65-110); HDL Direct 60 mg/dL; Potassium 4.2 mmol/L (3.4-5.0); Sodium 139 mmol/L (137-145); Total Protein 7.3 g/dL (6.3-8.2); Triglycerides 69 mg/dL (<150)
[2025-08-27 10:38] LABS: Hemoglobin A1C 5.2 % (<5.7)
[2025-08-27 11:06] LABS: Thyroid Stimulating Hormone 2.560 uIU/mL (0.465-4.680)
[2025-08-27 11:23] LABS: Vitamin B12 434.0 pg/mL (239-931)
== END 2025-08-27 09:20 | disposition home or self-care (01) ==
LOC: ANHLAB 09:22
PROVIDERS: PCP Clinical Nurse Specialist; Visit Provider Clinical Nurse Specialist
DX: E78.5 Hyperlipidemia, unspecified (principal); G20.A1 Parkinson's disease without dyskinesia, without mention of fluctuations; I95.1 Orthostatic hypotension; R73.01 Impaired fasting glucose; R42 Dizziness and giddiness; M54.2 Cervicalgia; Z13.228 Encounter for screening for other metabolic disorders
CPT/HCPCS: 36415; 80053; 80061; 82607; 83036; 84443; 85025

== ENCOUNTER 2025-09-04 19:19 | Emergency (ER) | payer MEDICARE, SELFPAY ==
--- NOTE | ~2025-09-04 | XR_ITS ---
XR elbow RT min 3V 09/04/2025 19:39 INDICATION: Left elbow pain PROCEDURE: 4 views left elbow COMPARISON: No prior studies for comparison. FINDINGS: Fracture, dislocation or subluxation is not identified. There is soft tissue swelling over the olecranon process. Cannot exclude bursitis. No foreign bodies are identified. IMPRESSION: 1: Soft tissue swelling overlying the olecranon process suspicious for bursitis. Reviewed, dictated and finalized at location O. ICAL AIDES TEACHER IMPRESSION: 1: Soft tissue swelling overlying the olecranon process suspicious for bursitis .
[2025-09-04 19:27] VITALS: BP 155/95; PULSE 69; RESP 18; TEMP 37.2; O2SAT 97
--- NOTE | 2025-09-04 19:55 | ED.FALL ---
HPI - Fall General Chief Complaint: Fall Stated Complaint: FALL Time Seen by Provider: 09/04/25 19:30 Source: patient and RN notes reviewed Mode of arrival: ambulatory Limitations: no limitations History of Present Illness HPI Narrative: 70-year-old female presents Express Care complaining of fall approximately 3 days ago. Patient says she was getting up to go to the bathroom in the middle night when she tripped over the corner of a rug falling on her left side. Patient denies hitting her head, loss of conscious, neck pain, back pain. Patient is complaining of left elbow pain and left shoulder pain. Patient reports pain and swelling and bruising to her elbow. Patient denies any obvious injury to her left shoulder. She reports the pain in her shoulder pain is primarily with movement. Patient has been taking Advil doing ice with some relief to her elbow. Patient denies taking any blood thinners. Related Data Home Medications ?Medication ?Instructions ?Recorded ?Confirmed ?Last Taken ?Type fludrocortisone 0.1 mg tablet 0.2 mg PO DAILY 05/07/23 08/20/25 Unknown History carbidopa 25 mg-levodopa 100 mg tablet PO 03/11/25 08/20/25 Unknown History tablet clonazepam 0.5 mg tablet mg PO 03/11/25 08/20/25 Unknown History Allergies Allergy/AdvReac Type Severity Reaction Status Date / Time No Known Allergies Allergy Mild NONE Verified 09/04/25 19:19 Review of Systems Review of Systems: CONSTITUTIONAL: Denies fever, chills, or sweats. EYES: Denies visual changes, redness, or discharge. ENT: Denies rhinorrhea, congestion, sore throat, or otalgia. CARDIOVASCULAR: Denies chest pain, palpitations, or edema. RESPIRATORY: Denies cough or dyspnea. GASTROINTESTINAL: Denies abdominal pain, nausea, vomiting, or diarrhea. GENITOURINARY: Denies dysuria or hematuria. SKIN: Denies rash or itching. MUSCULOSKELETAL: Denies back pain, joint pain, or myalgia. NEUROLOGIC: Denies headache, numbness, or weakness. PSYCHIATRIC: Denies anxiety or depression. All other systems reviewed are negative, except as documented in HPI. [facility] Past Medical History Medical History (Updated 09/05/25 @ 00:01 by Background Daemon) Encounter to establish care Chest pressure Dry cough Family history of Parkinson disease Solitary pulmonary nodule Other fatigue Myalgia Gastro-esophageal reflux disease without esophagitis Encounter for screening for respiratory tuberculosis Snoring Morbid obesity Surgical History Surgical History History of esophagogastroduodenoscopy (EGD) Family History Family History Mother Patient's mother is Cancer Diabetes mellitus Hypertension Sibling Patient's brother is Cancer Daughter Asthma Grandparent Asthma Cerebrovascular accident Social History Social History Smoking packs per day: 1 Smoking cigarettes per day: 20.0 Years smoked: 3 Smoking pack-years: 3.00 Tobacco type: cigarettes Second hand tobacco smoke exposure: No Smoking end date: 10/29/73 Alcohol intake: current Alcohol use details: rarely Substance use: never Substance use type: does not use Do You Feel Safe in your Home?: Yes Lack of Transportation: No Lack of Food: Never True Current Housing: Decline to Answer Concerned About Future Housing: Decline to Answer Difficulty Paying Gas/Electric Bills: Decline to Answer Difficulty Paying for Meds: Decline to Answer Currently Unemployed: Decline to Answer Education: Decline to Answer Difficulty w/ Childcare or Family Care: Decline to Answer Living arrangements: with family Spiritual care concerns: No Comments At the time of my signature, I reviewed and agree with the nursing past medical, surgical, social, and family history. There is no relevant family history pertinent to the patient complaint. Exam Narrative: GENERAL: This is a well-nourished, well-developed adult, in no apparent distress. They are non ill-appearing, nontoxic appearing. HEAD: normocephalic, atraumatic. EYES: Sclera clear/white. Conjunctiva normal. Vision is grossly intact. Extraocular movements intact EARS: External ears normal, Hearing grossly intact. NOSE: External nose normal THROAT: Mucous membranes moist, NECK: Neck supple, non-tender without lymphadenopathy, masses or thyromegaly. No cervical point tenderness, crepitus, or step-offs. CARDIOVASCULAR: Regular rate and rhythm RESPIRATORY: Respiratory rate normal, respiratory effort nonlabored, no respiratory distress SKIN: warm, Dry, intact with no suspicious lesions or rash, good texture and turgor. NEURO: awake, alert, and oriented to person, place and time. There were no obvious focal neurologic abnormalities. EXTREMITIES: left elbow: No obvious deformity. There is bruising and swelling present extending up to left upper arm. It is tender throughout. There is pain through full range of motion. Capillary refill less than 2 seconds. Neurovascular status intact distal injury. Sensation intact. Left radial pulse 2 +and palpable. Left shoulder: No obvious deformity, bruising or redness, swelling, or injury. No bony tenderness. There is pain through full range of motion left shoulder. Neurovascular status intact distal injury. BACK: Nontender without deformity. No CVA tenderness. No thoracic or lumbar point tenderness, crepitus, or step-offs. Course Course Emergency Course: Portions of this record may have been created with voice recognition software Level of Care: Express Care Visit Vital Signs Vital signs: Vital Signs Temperature 98.9 F 09/04/25 19:27 Pulse Rate 69 09/04/25 19:27 Respiratory Rate 18 09/04/25 19:27 Blood Pressure 155/95 H 09/04/25 19:27 Pulse Oximetry 97 09/04/25 19:27 Oxygen Delivery Room Air 09/04/25 19:27 Temperature 98.9 F 09/04/25 19:27 Pulse Rate 69 09/04/25 19:27 Respiratory Rate 18 09/04/25 19:27 Blood Pressure 155/95 H 09/04/25 19:27 Pulse Oximetry 97 09/04/25 19:27 Oxygen Delivery Room Air 09/04/25 19:27 Reviewed MDM - Fall MDM Narrative Medical decision making narrative: X-ray left elbow negative for any fractures or acute findings. X-ray does suggest olecranon bursitis could be traumatic in nature. No bony tenderness to left shoulder likely shoulder sprain. No x-ray indicated . Patient given Josh wrap for compression. Discussed rice therapy and supportive care. Discussed physical exam findings. Advised supportive measures and signs/symptoms to go to the ER. Pt is appropriate for outpt treatment and f/u. Differential Diagnosis Differential diagnosis: Likely other (Elbow fracture, elbow contusion, shoulders fracture, shoulder sprain, elbow sprain) Imaging Data Radiologist's impression: ITS Impressions Elbow X-Ray 09/04/25 19:42 IMPRESSION: 1: Soft tissue swelling overlying the olecranon process suspicious for bursitis. Critical Care Time Critical Care Time Critical Care Time: No Discharge Plan Discharge Clinical Impression: Fall, Contusion of elbow, left, Left shoulder pain, Bursitis, olecranon Patient Disposition: Home Condition: Stable Instructions: Elbow Bursitis (ED), Fall Prevention for Older Adults (ED) Additional Instructions: The x-ray of your left elbow is negative for any fractures or acute findings. It appear You may have bursitis your elbow from the fall. Rest and elevate the the affected arm, uses tolerated. Apply ice 15-20 minute intervals several times a day to help with swelling you may alternate with heat 20 minutes at a time few times a day. Keep it wrapped with JOSH or use an elbow sleeve. You may take ibuprofen 600 mg to 800 mg every 6-8 hours. Do not exceed more than 800 mg of ibuprofen per dose. Do not exceed more than 3200 mg ibuprofen in a day. You may take up to 1000 mg Tylenol every 6-8 hours. Do not exceed 1000 mg per dose, do exceed more than 4000 mg of Tylenol in a day. Take prednisone as directed. Follow up with your primary care provider orthopedist needed in 1-2 weeks especially if pain is persisting after 10 days. Patient Language: East Timorese Prescriptions: New prednisone 20 mg tablet 40 mg PO DAILY 3 Days Qty: 6 0RF No Action fludrocortisone 0.1 mg tablet 0.2 mg PO DAILY clonazepam 0.5 mg tablet PO carbidopa-levodopa 25-100 mg tablet PO trazodone 50 mg tablet 50 mg PO QHS Qty: 90 2RF pantoprazole 40 mg tablet,delayed release (DR/EC) 40 mg PO QAM Qty: 90 3RF atorvastatin 20 mg tablet 20 mg PO DAILY Qty: 90 3RF Follow-up/Referrals: Diamond Harden, ACCOUNTING SUPPORT SPECIALIST, [facility] [Primary Care Provider, Internal Medicine] Time of Disposition: 19:53
== END 2025-09-04 20:01 | disposition home or self-care (01) ==
PROVIDERS: PCP Clinical Nurse Specialist
DX: S50.02XA Contusion of left elbow, initial encounter (principal); W01.0XXA Fall on same level from slipping, tripping and stumbling without subsequent striking against object, initial encounter; M25.512 Pain in left shoulder; M70.22 Olecranon bursitis, left elbow; Z87.891 Personal history of nicotine dependence; K21.9 Gastro-esophageal reflux disease without esophagitis; E66.01 Morbid (severe) obesity due to excess calories; Z68.36 Body mass index [BMI] 36.0-36.9, adult
CPT/HCPCS: 73080; 99213; G0463